=== PATIENT | male | born 1960 | race Caucasian/White ===

== ENCOUNTER → 2021-12-06 08:14 | Outpatient (CLI) | payer MEDICARE, SELFPAY ==
--- NOTE | ~2021-12-06 | MR_ITS ---
EXAMINATION: MR shoulder LT wo con DATE: 12/06/2021 09:11 INDICATION: Left shoulder pain TECHNIQUE: Magnetic resonance imaging (MRI) of the left shoulder was performed without intravenous co ntrast. Sequences included axial PD-weighted FS FSE, coronal oblique PD-weighted FS FSE, coronal obli que T2-weighted FS FSE, sagittal PD-weighted FS FSE, and sagittal T1-weighted SE. COMPARISON: None. FINDINGS: Coracoacromial arch: The acromion undersurface is curved in morphology (type II). The coracoacromial ligament is normal. M ild to moderate acromioclavicular osteoarthritis. Rotator cuff: Severe supraspinatus and infraspinatus tendinopathy. Partial-thickness tear involving the supraspinat us and conjoined portion of the supraspinatus and infraspinatus tendons which includes both articular sided and bursal sided components. This most severe at the supraspinatus tendon where the tear invol ves greater than two thirds of the tendon thickness. There are some retraction of the torn portion of the tendon resulting in focal thickening of the tendon 2 cm from the footplate near the apex of the humeral head. Moderate subscapularis tendinopathy with partial-thickness tear involving the superomed ial quadrant of the lesser tuberosity footplate. The teres minor tendon is normal. There is mild fatt y atrophy of the infraspinatus muscle belly and to a lesser degree the cephalad portion of the subsca pularis muscle belly. Biceps tendon, glenoid labrum and glenohumeral cartilage: Moderate tendinopathy and longitudinal split tearing of the long head biceps tendon at the junction o f the intra-articular and extra articular portions of the tendon. There is degenerative tearing of th e posterosuperior glenoid labrum with marginal osteophyte along the posterior rim of the glenoid repl acing the majority the posterior labral tissue. Mild partial thickness cartilage loss with smooth cho ndral surface involving the inferomedial aspect of the humeral head as well as the cephalad half of t he glenoid. Fluid: Small glenohumeral joint effusion. There is also a small amount of fluid in the subacromial/subdeltoi d bursa which could be related to either bursitis or occult full-thickness perforations along the mar kedly thickened distal supraspinatus tendon. No loose osteochondral bodies. Bones: Normal marrow signal with no edema, fracture or abnormal marrow replacing process. IMPRESSION: 1. And extensive moderate to severe rotator cuff tendinopathy with partial-thickness tears of the sub scapularis, infraspinatus and most severe at the supraspinatus tendons. 2. Mild glenohumeral osteoarthritis with degenerative tearing of the posterosuperior labrum and likel y chronic degeneration with osteophyte replacement of the posterior labrum. 3. Mild to moderate acromioclavicular osteoarthritis. Reviewed, dictated and finalized at location A. M SPECIALIST IMPRESSION: 1. And extensive moderate to severe rotator cuff tendinopathy with partial-thic kness tears of the subscapularis, infraspinatus and most severe at the supraspi natus tendons. 2. Mild glenohumeral osteoarthritis with degenerative tearing of the posterosup erior labrum and likely chronic degeneration with osteophyte replacement of the posterior labrum. 3. Mild to moderate acromioclavicular osteoarthritis.
== END ==
PROVIDERS: PCP Internal Medicine Geriatric Medicine; Visit Provider Physician Assistant Surgical
DX: M25.512 Pain in left shoulder (principal); M75.82 Other shoulder lesions, left shoulder; M19.012 Primary osteoarthritis, left shoulder
CPT/HCPCS: 73221

== ENCOUNTER 2022-01-03 00:43 | Day surgery (SDC) | payer MEDICARE, SELFPAY ==
[2021-12-27 09:31] VITALS: BMI 36.1
--- NOTE | 2021-12-27 09:39 | PC.NURSE ---
Report to the Outpatient Waiting Room, entrance under the green pavilion located off [facility], at time 0830 on date 01/03/22. OR Time: 1030. - You and your visitor will be asked a series of questions to screen for COVID 19 for your protection. - A mask is required within the hospital. One visitor will be allowed to accompany the patient into the hospital. Patients visitor will be instructed to remain with patient at all times or leave the building. We will allow the visitor to come back to the postoperative area when patient is ready. Preoperative COVID Testing Requirements: No COVID Test needed if: (proof is required; if not received patient will have Rapid Test prior to entry) - Patient has received COVID Vaccine at least 14 days prior to procedure date or - Patient has positive COVID test result within last 90 days of surgery date. COVID Test needed if above criteria is not met Patients may have clear liquids (water, carbonated beverages, clear teas, apple juice) until 3 hours prior to surgery with a maximum of 20 ounces. - No food from midnight until time of surgery Take the following medications with a SIP of water the morning of surgery: INHALERS, BUPROPION, DULOXETINE Medications to discontinue per physician: VITAMINS/SUPPLEMENTS Date to take last dose: 12/30/21 Please no make-up, nail chadian, hairspray, perfume, deodorant, or body powder the day of surgery. No jewelry (including any body piercings) or valuables the day of surgery, leave them at home. Please take a shower or bath the night before, or the morning of, surgery with an antibacterial soap. Wear comfortable, loose fitting clothing. - Jewelry must be removed prior to entering the operating room. Rings and piercings that are not removed may be cut off. - The hospital will not accept responsibility for valuables. - Please leave all valuables, including medications, at home the day of surgery. If you are going home after surgery, a licensed racing car driver must drive you home. - NO public transportation without another adult. - We recommend that an adult stay with you for 24 hours following discharge. - We also recommend that you do not drive, make important decision, drink alcoholic beverages, or take any drugs that were not prescribed by your health care provider for at least 24 hours after your discharge time. Follow any additional instructions given to you from your surgeon. Telephone instructions given to PAVAN SANTIAGO and asked if any additional questions and then verbalized understanding. Patient advised to call surgeon office or pre surgery nurse liaison [phone] if any additional questions.
[2022-01-03] VITALS (8 sets, daily range): BP systolic 88–138; BP diastolic 55–90; PULSE 72–87; RESP 12–26; TEMP 36.1; O2SAT 92–99
--- NOTE | 2022-01-03 07:28 | WPDHPUPDATE1 ---
History and Physical Update Update Date/Time: 01/03/22 07:28 History and Physical has been reviewed, including an updated exam of the patient. There are NO changes in the patient's condition. Risks, benefits, and alternatives have been discussed and questions answered. Patient agrees to proceed with procedure.
[2022-01-03] MEDS: ACETAMINOPHEN 500 MG TABLET 1000 MG PO (08:55)
--- NOTE | 2022-01-03 08:55 | WPDANESEPPF ---
Anes - Initial Pre Proc Eval Procedure: Operation Date: 01/03/22 10:30 Proposed Procedures p Left Shoulder Arthroscopic Rotator Cuff Repair, Biceps Tenodesis, Subacromial Decompression, Proceed as Indicated - Estrada De Jesus MD Date/Time: 01/03/22 08:55 Surgeon: Estrada De Jesus MD Pre Op Diagnosis: left rotator cuff tear Patient Data Age: 61 Gender: M Height: 1.75 m Weight: 111.13 kg Allergies Allergy/AdvReac Type Severity Reaction Status Date / Time No Known Allergies Allergy Verified 01/03/22 08:42 Home Medications Medication Instructions Recorded Confirmed Type acetaminophen 650 mg 650 mg PO Q12H 09/02/19 01/03/22 History tablet,extended release albuterol sulfate 90 mcg/actuation 1 inhalation INHALATION Q4H 09/02/19 01/03/22 History aerosol inhaler benzonatate 100 mg capsule 100 mg PO TID 09/02/19 01/03/22 History bupropion HCl 300 mg 24 hr tablet, 300 mg PO QAM 09/02/19 01/03/22 History extended release calcipotriene 0.005 % topical cream 1 applic TOPICAL BID 09/02/19 01/03/22 History cholecalciferol (vitamin D3) 125 5,000 unit PO DAILY 09/02/19 01/03/22 History mcg (5,000 unit) capsule clobetasol 0.05 % topical ointment 1 applic TOPICAL BID 09/02/19 01/03/22 History duloxetine 30 mg capsule,delayed 30 mg PO DAILY 09/02/19 01/03/22 History release fluticasone propionate 50 1 spray NASAL BID 09/02/19 01/03/22 History mcg/actuation nasal spray,suspension mometasone-formoterol HFA 200 2 puff INHALATION BID 09/02/19 01/03/22 History mcg-5 mcg/actuation aerosol inhaler montelukast 10 mg tablet 10 mg PO DAILY 09/02/19 01/03/22 History omeprazole 40 mg capsule,delayed 40 mg PO DAILY 09/02/19 01/03/22 History release sildenafil (pulm.hypertension) 20 20 mg PO TID 09/02/19 01/03/22 History mg tablet tramadol 50 mg tablet 50 mg PO Q6H PRN 09/02/19 01/03/22 History Patient hx anesthesia problems: none Family hx anesthesia problems: none Results Review: All pre-operative results and documents have been reviewed as part of the pre-operative evaluation. [facility] Past Medical History Medical History History of atrial fibrillation Other cervical disc degeneration, unspecified cervical region Radiculopathy, cervical region Social History Social History Smoking status: Current some day smoker Tobacco type: pipe and cigars Alcohol intake: current Drinks per week: 21 Alcohol use details: 3 BEER/DAY Substance use: current Substance use type: marijuana Living arrangements: with family Spiritual care concerns: No Anes - Eval Final PreProcedure Day of Procedure 01/03/22 08:55 Patient weight: obese Heart: regular rate and rhythm Lungs: clear to auscultation and normal air movement Airway: Mallampati scale class III Neurological: alert and oriented Last oral intake: >/= 8 hours ASA classification: III Emergent: no Anesthetic plan: proceed Anesthesia type and monitoring: general ETT and standard monitoring Results Review: All pre-operative results and documents have been reviewed as part of the pre-operative evaluation. Informed Consent: The patient's anesthetic plan and its attendant risks and benefits were discussed with the patient/family/POA. Questions were solicited and answers provided to the satisfaction of the patient/family/POA.
[2022-01-03] MEDS: LACTATED RINGERS 1,000 ML 30 ML IV CONT ×2 (09:04→14:10)
[2022-01-03] MEDS: KETOROLAC 15 MG/ML VIAL (*BKC) IV PUSH (09:35)
--- NOTE | 2022-01-03 09:44 | WPDANESPNB ---
Anes - Peripheral Nerve Block Date/Time: 01/03/22 09:44 I have discussed with the patient/family/POA the placement of a peripheral nerve block for post-operative pain management, including associated risks, benefits, complications, and side effects. Alternative methods of post-operative analgesia were detailed. Questions were solicited and answers provided to the satisfaction of the patient/family/POA. Time-Out: A pre-procedural Time-Out was completed immediately before starting the procedure and confirmed: Patient Identification, Site, Procedure, Patient Position and the Availability of Requisite Equipment. Clinical Indications: Acute post-operative pain management requested by the operative surgeon. Nerve Block Insertion Note Anes-nerve block: interscalene left Patient position: supine Skin prep: chlorhexidine Needle: 22 gauge, stimulating, insulated echogenic needle. Needle length: 50 mm Technique: ultrasound Injectate: bupivacaine 0.5% with epi 5 mcg/ml (30cc- no epi) Observations: tolerated well Complications: none Procedure start time:: 937 Procedure end time:: 941
[2022-01-03] MEDS: ceFAZolin 2 GM/D5W 50 ML 2 GM/50 ML BAG IVPB (10:17)
--- NOTE | 2022-01-03 16:28 | SUR.PHASEII ---
Dr. Bustos aware of BP. Since patient is asymptomatic he was ok with sending patient home with that BP.
--- NOTE | 2022-01-03 17:26 | P.OP_ITS ---
Procedure Note - Detailed Date of Procedure 01/03/22 Pre-op Diagnosis Left rotator cuff tear Post-op Diagnosis Other (1. Left rotator cuff tear 2. Biceps tendinosis 3. Subacromial impingement 4. Degenerative labral tear) Procedure Performed 1. Arthroscopic rotator cuff repair 2. Arthroscopic subacromial decompression 3. Arthroscopic biceps tenodesis 4. Arthroscopic labral debridement Surgeon Estrada De Jesus MD Promotions Director Dinorah Fu PA-C Anesthesia General and Regional ( interscalene block) Findings Extensive articular side delaminating tear with minimal bridging tissue likely chronic bursal response to the tear. Moderate retraction of the more significant undersurface fibers. These were poorly mobile. Tissue required lateral take down and repair with 3 bone tunnel very large rotator cuff tear. The articular delaminated portions were very chronic and could not be completely reduced to the footprint. The more healthy bursal side tissue sleeve was taken in continuity and brought back nicely without undue tension. The tissue was fairly robust. The upper border of the subscapularis was also repaired with an all suture double loaded anchor, earlier from an intraarticular view. The biceps was unstable and significantly frayed. There was extensive degenerative tearing of the SLAP area and anterior labrum. The articular cartilage was normal. Biceps tenodesis was incorporated into the anterior tunnel. A subacromial decompression was performed with extensive bursectomy. Description of Procedure Physician assistant community director, Dinorah Fu PA-C, required for surgery; including patient positioning, draping, arthroscopic camera operation, maintaining instrument position, suture retrieval, wound closure, and dressing and sling placement. Preoperative antibiotics were given. An interscalene block was administered in the preoperative area. The patient was bought brought to the operating room. A general anesthetic was administered. The patient was carefully positioned in the beach chair position. The head and neck were carefully positioned. The non operative extremity was also carefully positioned. The shoulder was prepped and draped in the usual sterile fashion. Examination was performed. Standard posterior and anterior arthroscopic portals were established. Inflow achieved with the arthroscopic pump using saline and epinephrine. The glenohumeral joint was carefully inspected. Debridement of the SLAP tear and release of the biceps was performed. The subscapularis was repaired with a single all suture anchor and 2 simple sutures. The tear was of the upper border. Attention was turned to the subacromial space. A complete bursectomy was performed. The rotator cuff and footprint were lightly debrided. A modest acromioplasty was performed. The tear configuration was carefully assessed. At this point, 3 tunnels were created at the rotator cuff. The ArthroTunneler technique was utilized. Three sutures were passed through each tunnel. All sutures were then passed through the cuff tissue. One of the anterior sutures was used to repair the biceps tendon. The sutures were tied arthroscopically. The arthroscopic instruments were removed. The wounds were closed with 3-0 Monocryl subcuticular suture and steri strips. There were no complications. A sling was applied and the patient brought to the recovery room. Estimated Blood Loss 20 Pathology None sent Complications No immediate complications Condition Stable Disposition PACU
== END 2022-01-03 16:13 | disposition home or self-care (01) ==
PROVIDERS: PCP Internal Medicine Geriatric Medicine; Visit Provider Orthopaedic Surgery
PROC: (CPT 29805; principal; 2022-01-03 10:30)
DX: M75.102 Unspecified rotator cuff tear or rupture of left shoulder, not specified as traumatic (principal); M75.42 Impingement syndrome of left shoulder; M75.82 Other shoulder lesions, left shoulder; M75.22 Bicipital tendinitis, left shoulder; G89.18 Other acute postprocedural pain; M47.22 Other spondylosis with radiculopathy, cervical region; Z72.0 Tobacco use; E66.9 Obesity, unspecified; Z68.35 Body mass index [BMI] 35.0-35.9, adult; Z79.51 Long term (current) use of inhaled steroids
CPT/HCPCS: 29827; 29828; 29826; 64415; A4565; A9270; C1713; J0690; J1885; J2250; J3010; J7120